=== PATIENT | female | born 1990 | race Caucasian/White ===

== ENCOUNTER 2018-06-08 13:43 | Emergency (ER) | payer BC, OTHER, SELFPAY ==
[2018-06-08] MEDS: predniSONE 20 MG TAB PO (15:17)
[2018-06-08] MEDS: LORATADINE 10 MG TAB PO (15:17)
== END 2018-06-08 15:26 | disposition home or self-care (01) ==
LOC: M ED 13:43
DX: L29.9 Pruritus, unspecified (principal); T63.441A Toxic effect of venom of bees, accidental (unintentional), initial encounter; Z88.1 Allergy status to other antibiotic agents; Z88.2 Allergy status to sulfonamides; Z79.3 Long term (current) use of hormonal contraceptives; Z79.899 Other long term (current) drug therapy
CPT/HCPCS: 99283